=== PATIENT | male | born 1960 | race Caucasian/White ===

== ENCOUNTER → 2016-12-18 | Outpatient (CLI) | payer MEDICARE ==
[2016-12-18 16:16] LABS: ABSOLUTE EOSINOPHILS # (AUTO) 0.1 10^3/uL (0.0-0.6); ABSOLUTE LYMPHOCYTES (AUTO) 1.5 10^3/uL (0.5-4.7); ABSOLUTE MONOCYTES (AUTO) 0.2 10^3/uL (0.1-1.4); ABSOLUTE NEUT (AUTO) 2.1 10^3/uL (1.7-8.2); BASOPHILS % (AUTO) 0.8 % (0-2); EOSINOPHILS % (AUTO) 1.3 % (0-6); HEMATOCRIT 37.1 % (37.9-51.0); HEMOGLOBIN 12.5 g/dL (13.5-17.0); HGB HCT DIFFERENCE 0.4; LYMPHOCYTES % (AUTO) 38.8 % (13-45); MEAN CORPUSCULAR HEMOGLOBIN 28.3 pg (27.0-33.4); MEAN CORPUSCULAR HGB CONC 33.7 g/dL (32.0-36.0); MEAN CORPUSCULAR VOLUME 84 fl (80-97); MONOCYTES % (AUTO) 5.7 % (3-13); RED BLOOD COUNT 4.42 10^6/uL (4.35-5.55); RED CELL DISTRIBUTION WIDTH 15.2 % (11.5-14.0); SEGMENTED NEUTROPHILS % (AUTO) 53.4 % (42-78); WHITE BLOOD COUNT 3.9 10^3/uL (4.0-10.5)
[2016-12-18 16:31] LABS: ALANINE AMINOTRANSFERASE 51 U/L (21-72); ALKALINE PHOSPHATASE 44 U/L (38-126); ANION GAP 12 (5-19); ASPARTATE AMINO TRANSFERASE 54 U/L (17-59); BILIRUBIN,DIRECT 0.3 mg/dL (0.0-0.4); BILIRUBIN,TOTAL 0.8 mg/dL (0.2-1.3); BLOOD UREA NITROGEN 8 mg/dL (7-20); CALCIUM 8.8 mg/dL (8.4-10.2); CARBON DIOXIDE 25 mmol/L (22-30); CHLORIDE 104 mmol/L (98-107); CREATININE RESULT 0.85 mg/dL (0.52-1.25); GLUCOSE 99 mg/dL (75-110); IRON 85.4 ug/dL (49-181); POTASSIUM 4.3 mmol/L (3.6-5.0); SODIUM 141.2 mmol/L (137-145); TOTAL PROTEIN 7.1 g/dL (6.3-8.2)
== END ==
LOC: OD 15:33
PROVIDERS: ATTEND Specialist
DX: R10.9 Unspecified abdominal pain (principal); D50.9 Iron deficiency anemia, unspecified
CPT/HCPCS: 36415; 80053; 82607; 82728; 83540; 85025

== ENCOUNTER 2017-01-03 10:30 | Day surgery (SDC) | payer MEDICARE ==
[~2017-01-03 10:30] MED LIST: EPINEPHRINE INJ 1 MG/10 ML DISP.SYRIN ONE; FLUMAZENIL INJ 0.5 MG/5 ML VIAL IV ONE; GLYCOPYRROLATE INJ 0.4 MG/2 ML VIAL ONE; MIDAZOLAM 2 MG/2 ML INJ ONE; NALOXONE HCL INJ/PF 0.4 MG/1 ML SDV ONE; ONDANSETRON HCL INJ/PF 4 MG/2 ML SDV ONE
--- NOTE | 2017-01-03 10:51 | HISTORY AND PHYSICAL E ---
History and Physical NAME: YAAKOV ZHANG : 1960 AGE: 56Y ADMITTED: 01/03/2017 ROOM: CHIEF COMPLAINT: Dysphagia with vomiting. HISTORY OF PRESENT ILLNESS: New patient, 56, just moved from [place]. He does have history of achalasia, underwent POEM in [place] for achalasia with good results, now he has reflux and dysphagia. PAST MEDICAL HISTORY: 1. History of candidiasis. 2. History of H pylori. 3. History of hepatitis C. 4. And C difficile. PAST SURGICAL HISTORY: The patient did have the followin. Testicle surgery. 2. Back fusion. 3. Spinal stimulator. 4. He does have history of POEM for achalasia. 5. Upper endoscopy October of this year. 6. Colonoscopy October of this year in [place]. MEDICATIONS: 1. Oxycodone. 2. Lyrica. 3. Lexapro. 4. Vitamin D. 5. Diazepam. 6. Magnesium. 7. The patient takes prostate treatment. 8. Aciphex. 9. Nebulizer. 10. Probiotics. PHYSICAL EXAMINATION: VITAL SIGNS: Age 56, blood pressure 90/60, pulse 80, respirations 18, temperature is 98. HEAD, EYES, EARS, NOSE, THROAT: Normal. ABDOMEN: Soft. NEUROLOGIC: Negative. CONCLUSION: 1. Achalasia. 2. History of POEM endoscopic treatment for achalasia. 3. History of dysphagia. 4. Reflux. PLAN: Upper endoscopy. Consider dilatation if there is definite stricture. DICTATING PHYSICIAN: ASHISH PEACOCK M.D. [id number] Y#: [id number] ID: [id number] JOB#: [id number] ACCT: [id number] cc:ASHISH PEACOCK M.D. >
[2017-01-03] MEDS: MIDAZOLAM 2 MG/2 ML INJ ONE ×3 (11:11→11:17)
[2017-01-03] MEDS: FENTANYL CITRATE INJ/PF 100 MCG/2 ML AMPUL ONE ×2 (11:13→11:19)
[2017-01-03 12:40] VITALS: BP 105/67
[2017-01-03 12:40] LABS: ABSOLUTE LYMPHOCYTES (AUTO) 1.2 10^3/uL (0.5-4.7); ABSOLUTE MONOCYTES (AUTO) 0.4 10^3/uL (0.1-1.4); ABSOLUTE NEUT (AUTO) 2.6 10^3/uL (1.7-8.2); BASOPHILS % (AUTO) 0.9 % (0-2); EOSINOPHILS % (AUTO) 0.9 % (0-6); HEMATOCRIT 38.4 % (37.9-51.0); HEMOGLOBIN 13.1 g/dL (13.5-17.0); HGB HCT DIFFERENCE 0.9; LYMPHOCYTES % (AUTO) 29.1 % (13-45); MEAN CORPUSCULAR HEMOGLOBIN 28.7 pg (27.0-33.4); MEAN CORPUSCULAR HGB CONC 34.2 g/dL (32.0-36.0); MEAN CORPUSCULAR VOLUME 84 fl (80-97); MONOCYTES % (AUTO) 9.5 % (3-13); RED BLOOD COUNT 4.57 10^6/uL (4.35-5.55); RED CELL DISTRIBUTION WIDTH 16.5 % (11.5-14.0); SEGMENTED NEUTROPHILS % (AUTO) 59.6 % (42-78); WHITE BLOOD COUNT 4.3 10^3/uL (4.0-10.5)
[2017-01-03 12:55] LABS: ALANINE AMINOTRANSFERASE 68 U/L (21-72); ALBUMIN 4.2 g/dL (3.5-5.0); ALKALINE PHOSPHATASE 45 U/L (38-126); AMYLASE 101 U/L (30-110); ANION GAP 13 (5-19); ASPARTATE AMINO TRANSFERASE 68 U/L (17-59); BILIRUBIN,DIRECT 0.3 mg/dL (0.0-0.4); BILIRUBIN,TOTAL 0.5 mg/dL (0.2-1.3); BLOOD UREA NITROGEN 9 mg/dL (7-20); CALCIUM 8.9 mg/dL (8.4-10.2); CARBON DIOXIDE 25 mmol/L (22-30); CHLORIDE 102 mmol/L (98-107); CREATININE RESULT 0.71 mg/dL (0.52-1.25); GLUCOSE 121 mg/dL (75-110); LIPASE 132.2 U/L (23-300); POTASSIUM 4.5 mmol/L (3.6-5.0); SODIUM 139.8 mmol/L (137-145); TOTAL PROTEIN 7.4 g/dL (6.3-8.2)
[2017-01-03 13:22] LABS: CARCINOEMBRYONIC ANTIGEN 1.3 ng/mL (<3.0)
[2017-01-03 13:28] LABS: C-REACTIVE PROTEIN < 5.0 mg/L (<10.0)
--- NOTE | 2017-01-03 19:44 | DISCHARGE SUMMARY E ---
Discharge Summary NAME: YAAKOV ZHANG : 1960 AGE: 56Y ADMITTED: 01/03/2017 DISCHARGED: 01/03/2017 PROCEDURE: Esophagogastroduodenoscopy. FINAL DIAGNOSES: 1. Dysphagia secondary to achalasia. 2. Hiatus hernia. 3. Mild narrowing in the distal esophagus, no narrow enough to consider dilatation at this time. 4. Patient does have history of chronic obstructive pulmonary disease, emphysema, pneumonia, arthritis, hepatitis C, reflux, spinal cord injury, and dysphagia. VITAL SIGNS: Blood pressure 120/70, pulse 70, afebrile. His abdomen is soft. Upper endoscopy shows no obstruction, no bleeding. A 3 cm hiatus hernia with mild distal esophageal narrowing and mild gastritis. DISCHARGE PLAN: 1. Continue soft diet. 2. Multiple feeding. 3. Consider abdominal CT to rule out any small bowel narrowing or cause for the vomiting, lab studies, small bowel series as an outpatient. ALLERGIES: 1. MORPHINE. 2. PENICILLIN. DICTATING PHYSICIAN: ASHISH PEACOCK M.D. [id number] PHY#: [id number] ID: [id number] JOB#: [id number] ACCT: [id number] cc:ASHISH PEACOCK M.D. >
--- NOTE | 2017-01-03 19:54 | OPERATIVE REPORT E ---
Operative Report NAME: YAAKOV ZHANG : 1960 AGE: 56Y DATE OF SURGERY: 01/03/2017 ROOM: PREOPERATIVE DIAGNOSES: 1. Dysphagia. 2. Reflux. 3. History of achalasia treated by POEM in [place]. Patient just moved from [place], continued to complain of dysphagia and reflux. POSTOPERATIVE DIAGNOSES: 1. Hiatus hernia 3 cm in size. 2. Distal esophagus narrowing but not narrow enough to dilate. Mild narrowing which relaxed with passing the scope. 3. Patient did have a clip in his proximal esophagus from the recent POEM surgery for achalasia in [place]. PROCEDURE: EGD. SURGEON: ASHISH PEACOCK M.D. ANESTHESIA: Patient was difficult to sedate. He received 6 mg of Versed and 200 mcg of Fentanyl, and he was basically awake but sedated. TISSUE REMOVED OR ALTERED: None. FINDINGS: No ulcers, no malignancy, mild distal esophageal stricture not narrow enough to dilate, a large hiatus hernia 3 cm, and a clip in the proximal esophagus from recent POEM surgery in [place]. PROCEDURE: After the 6 mg Versed and 200 mcg Fentanyl the patient was sedated and the scope passed under guided vision with no difficulties. Esophagoscopy: Junction at 40 cm, 3-cm hiatus hernia, and the esophagus in the distal part shows mild narrowing, but the scope passed in and out with no difficulties. I do not feel the patient needs dilatation at this time. Gastroscopy: No ulcers, mild gastritis. Duodenoscopy: Mild duodenitis. CONCLUSIONS: Esophagitis, gastritis, duodenitis, status post POEM treatment for achalasia in [facility] [place] [facility]. No evidence of ulcers, no bleeding, no obstruction. PLAN: 1. Continue present management. 2. Soft diet. 3. Patient is to see us in the office in the next few days. DICTATING PHYSICIAN: ASHISH PEACOCK M.D. 1209M 1148 Y#: [id number] ID: [id number] JOB#: [id number] ACCT: [id number] cc:ASHISH PEACOCK M.D. >
== END 2017-01-03 12:38 | disposition home or self-care (01) ==
LOC: END 10:30
PROVIDERS: ATTEND Specialist
PROC: 0DJ08ZZ Inspection of Upper Intestinal Tract, Via Natural or Artificial Opening Endoscopic (ICD-10-PCS; principal; 2017-01-03 11:00)
DX: K44.9 Diaphragmatic hernia without obstruction or gangrene (principal); K22.0 Achalasia of cardia; K22.2 Esophageal obstruction; R97.0 Elevated carcinoembryonic antigen [CEA]; N42.9 Disorder of prostate, unspecified; Z79.899 Other long term (current) drug therapy; Z88.0 Allergy status to penicillin; Z79.51 Long term (current) use of inhaled steroids; Z86.19 Personal history of other infectious and parasitic diseases
CPT/HCPCS: 43235; 36415; 82150; 82378; 83690; 85025; 86140; 80053; J2250; J3010; J2405; J0171; J2310; J3490

== ENCOUNTER 2017-11-02 11:27 | Emergency (ER) | payer OTHER, MEDICARE ==
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
[2017-11-02 12:44] LABS: ABSOLUTE EOSINOPHILS # (AUTO) 0.1 10^3/uL (0.0-0.6); ABSOLUTE LYMPHOCYTES (AUTO) 1.5 10^3/uL (0.5-4.7); ABSOLUTE MONOCYTES (AUTO) 0.3 10^3/uL (0.1-1.4); ABSOLUTE NEUT (AUTO) 2.8 10^3/uL (1.7-8.2); EOSINOPHILS % (AUTO) 1.4 % (0-6); HEMATOCRIT 40.4 % (37.9-51.0); HEMOGLOBIN 13.7 g/dL (13.5-17.0); LYMPHOCYTES % (AUTO) 31.1 % (13-45); MEAN CORPUSCULAR HEMOGLOBIN 29.8 pg (27.0-33.4); MEAN CORPUSCULAR HGB CONC 33.8 g/dL (32.0-36.0); MEAN CORPUSCULAR VOLUME 88 fl (80-97); MONOCYTES % (AUTO) 6.4 % (3-13); RED BLOOD COUNT 4.59 10^6/uL (4.35-5.55); RED CELL DISTRIBUTION WIDTH 13.9 % (11.5-14.0); SEGMENTED NEUTROPHILS % (AUTO) 60.1 % (42-78); TOTAL CELLS COUNTED % (AUTO) 100 %; WHITE BLOOD COUNT 4.7 10^3/uL (4.0-10.5)
[2017-11-02 12:56] LABS: ANION GAP 9 (5-19); BLOOD UREA NITROGEN 12 mg/dL (7-20); CALCIUM 9.7 mg/dL (8.4-10.2); CARBON DIOXIDE 26 mmol/L (22-30); CHLORIDE 106 mmol/L (98-107); GLUCOSE 74 mg/dL (75-110); POTASSIUM 4.4 mmol/L (3.6-5.0); SODIUM 140.6 mmol/L (137-145)
[2017-11-02 13:00] LABS: PLATELET COUNT 80 10^3/uL (150-450)
[2017-11-02 14:08] VITALS: BP 115/78
== END 2017-11-02 14:06 | disposition home or self-care (01) ==
LOC: ER 11:27
DX: S20.212A Contusion of left front wall of thorax, initial encounter (principal); S09.90XA Unspecified injury of head, initial encounter; M54.2 Cervicalgia; V49.40XA Driver injured in collision with unspecified motor vehicles in traffic accident, initial encounter; J44.9 Chronic obstructive pulmonary disease, unspecified; Z88.5 Allergy status to narcotic agent
CPT/HCPCS: 36415; 70450; 71045; 72125; 72170; 80048; 82962; 85025; 99285

== ENCOUNTER 2017-11-05 10:56 | Emergency (ER) | payer OTHER, MEDICARE ==
[2017-11-05] MEDS ORDERED: CARISOPRODOL 350 MG TABLET PO ONE (13:15)
[2017-11-05] MEDS ORDERED: OXYCODONE-ACETAMINOPHEN 5-325 MG TABLET PO ONE (13:17)
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
[2017-11-05 14:22] VITALS: BP 125/81
== END 2017-11-05 14:44 | disposition home or self-care (01) ==
LOC: ER 10:56
DX: S06.0X9A Concussion with loss of consciousness of unspecified duration, initial encounter (principal); S16.1XXA Strain of muscle, fascia and tendon at neck level, initial encounter; R51 Headache; M79.604 Pain in right leg; M79.605 Pain in left leg; V49.9XXA Car occupant (driver) (passenger) injured in unspecified traffic accident, initial encounter; Z98.1 Arthrodesis status; Z79.899 Other long term (current) drug therapy; Z88.5 Allergy status to narcotic agent; Z88.0 Allergy status to penicillin
CPT/HCPCS: 99283; J3490

== ENCOUNTER 2017-12-24 08:10 | Emergency (ER) | payer OTHER, MEDICARE ==
[2017-12-24] MEDS ORDERED: DIPHENHYDRAMINE HCL 50 MG/ML VIAL IV ONE (09:19)
[2017-12-24] MEDS ORDERED: KETOROLAC TROMETHAMINE INJ/PF 30 MG/1 ML SDV IV ONE (09:19)
[2017-12-24] MEDS ORDERED: METOCLOPRAMIDE HCL INJ/PF 10 MG/2 ML SDV IV ONE (09:19)
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
[2017-12-24 10:03] LABS: ABSOLUTE EOSINOPHILS # (AUTO) 0.1 10^3/uL (0.0-0.6); ABSOLUTE LYMPHOCYTES (AUTO) 1.2 10^3/uL (0.5-4.7); ABSOLUTE MONOCYTES (AUTO) 0.4 10^3/uL (0.1-1.4); ABSOLUTE NEUT (AUTO) 2.7 10^3/uL (1.7-8.2); BASOPHILS % (AUTO) 0.9 % (0-2); EOSINOPHILS % (AUTO) 1.7 % (0-6); HEMATOCRIT 41.9 % (37.9-51.0); HEMOGLOBIN 14.3 g/dL (13.5-17.0); LYMPHOCYTES % (AUTO) 27.2 % (13-45); MEAN CORPUSCULAR HEMOGLOBIN 30.2 pg (27.0-33.4); MEAN CORPUSCULAR HGB CONC 34.2 g/dL (32.0-36.0); MEAN CORPUSCULAR VOLUME 88 fl (80-97); MONOCYTES % (AUTO) 8.7 % (3-13); RED BLOOD COUNT 4.75 10^6/uL (4.35-5.55); RED CELL DISTRIBUTION WIDTH 14.3 % (11.5-14.0); SEGMENTED NEUTROPHILS % (AUTO) 61.5 % (42-78); TOTAL CELLS COUNTED % (AUTO) 100 %; WHITE BLOOD COUNT 4.4 10^3/uL (4.0-10.5)
--- NOTE | 2017-12-24 10:22 | RADIOLOGY REPORT (SQ) ---
EXAM DESCRIPTION: CHEST SINGLE VIEW COMPLETED DATE/TIME: 12/24/2017 9:58 am REASON FOR STUDY: dizziness COMPARISON: AP chest 11/02/2017 EXAM PARAMETERS: NUMBER OF VIEWS: One view. TECHNIQUE: Single frontal radiographic view of the chest acquired. RADIATION DOSE: NA LIMITATIONS: None. FINDINGS: LUNGS AND PLEURA: No opacities, masses or pneumothorax. No pleural effusion. MEDIASTINUM AND HILAR STRUCTURES: No masses. Contour normal. HEART AND VASCULAR STRUCTURES: Heart normal in size. Normal vasculature. BONES: No acute findings. HARDWARE: Neurostimulator electrodes are present over the lower thoracic spine OTHER: No other significant finding. IMPRESSION: NO ACUTE RADIOGRAPHIC FINDING IN THE CHEST. TECHNICAL DOCUMENTATION: JOB ID: [id number] [employer]- All Rights Reserved Reading location - IP/workstation name: [email or web address]
[2017-12-24 10:27] LABS: APPEARANCE,URINE CLEAR; BILIRUBIN,URINE NEGATIVE (NEGATIVE); COLOR,URINE YELLOW; GLUCOSE, URINE NEGATIVE (NEGATIVE); KETONES,URINE NEGATIVE (NEGATIVE); LEUKOCYTE ESTERASE,URINE NEGATIVE (NEGATIVE); NITRITE,URINE NEGATIVE (NEGATIVE); PROTEIN,URINE NEGATIVE (NEGATIVE); URINE SPECIFIC GRAVITY 1.009; UROBILINOGEN,URINE NEGATIVE mg/dL (<2.0)
[2017-12-24 10:31] LABS: ALANINE AMINOTRANSFERASE 81 U/L (21-72); ALBUMIN 4.3 g/dL (3.5-5.0); ALKALINE PHOSPHATASE 47 U/L (38-126); ANION GAP 12 (5-19); ASPARTATE AMINO TRANSFERASE 75 U/L (17-59); BILIRUBIN,DIRECT 0.3 mg/dL (0.0-0.4); BILIRUBIN,TOTAL 0.3 mg/dL (0.2-1.3); BLOOD UREA NITROGEN 15 mg/dL (7-20); CALCIUM 9.7 mg/dL (8.4-10.2); CARBON DIOXIDE 28 mmol/L (22-30); CHLORIDE 105 mmol/L (98-107); GLUCOSE 83 mg/dL (75-110); POTASSIUM 4.8 mmol/L (3.6-5.0); SODIUM 144.9 mmol/L (137-145); TOTAL PROTEIN 7.5 g/dL (6.3-8.2)
[2017-12-24 10:36] LABS: PLATELET COUNT 89 10^3/uL (150-450)
[2017-12-24 10:48] LABS: URINE AMPHETAMINES SCREEN NEGATIVE; URINE BARBITURATES SCREEN NEGATIVE; URINE BENZODIAZEPINES SCREEN NEGATIVE; URINE COCAINE SCREEN NEGATIVE; URINE MARIJUANA (THC) SCREEN NEGATIVE; URINE METHADONE SCREEN NEGATIVE; URINE PHENCYCLIDINE SCREEN NEGATIVE
[2017-12-24] MEDS ORDERED: FAMOTIDINE INJ/PF 20 MG/2 ML SDV IV ONE (11:03)
[2017-12-24] MEDS ORDERED: DOCUSATE SODIUM 100 MG CAPSULE BTH_EAR ONE (11:03)
--- NOTE | 2017-12-24 11:26 | RADIOLOGY REPORT (SQ) ---
EXAM DESCRIPTION: CT HEAD WITHOUT COMPLETED DATE/TIME: 12/24/2017 11:14 am REASON FOR STUDY: dizziness, tinnitus COMPARISON: CT brain 11/02/2017 TECHNIQUE: Axial images acquired through the brain without intravenous contrast. Images reviewed wi th bone, brain and subdural windows. Additional sagittal and coronal reconstructions were generated. Images stored on PACS. All CT scanners at this facility use dose modulation, iterative reconstruction, and/or weight based d osing when appropriate to reduce radiation dose to as low as reasonably achievable (ALARA). [facility]: Dose Right [facility]: CareDose [facility]: Dose Right [facility]: Teradose 4D [facility]: [employer] RADIATION DOSE: CT Rad equipment meets quality standard of care and radiation dose reduction techniq ues were employed. CTDIvol: 53.2 mGy. DLP: 1017 mGy-cm. mGy. LIMITATIONS: None. FINDINGS: VENTRICLES: Normal size and contour. CEREBRUM: No masses. No hemorrhage. No midline shift. No evidence for acute infarction. Normal gra y/white matter differentiation. No areas of low density in the white matter. CEREBELLUM: No masses. No hemorrhage. No alteration of density. No evidence for acute infarction. EXTRAAXIAL SPACES: No fluid collections. No masses. ORBITS AND GLOBE: No intra- or extraconal masses. Normal contour of globe without masses. CALVARIUM: No fracture. PARANASAL SINUSES: No fluid or mucosal thickening. SOFT TISSUES: No mass or hematoma. OTHER: No other significant finding. IMPRESSION: NORMAL BRAIN CT WITHOUT CONTRAST. EVIDENCE OF ACUTE STROKE: NO. COMMENT: Quality ID # [id number]: Final reports with documentation of one or more dose reduction techniques (e.g., Automated exposure control, adjustment of the mA and/or kV according to patient size, use of iterative reconstruction technique) TECHNICAL DOCUMENTATION: JOB ID: [id number] [employer]- All Rights Reserved Reading location - IP/workstation name: [email or web address]
[2017-12-24 12:36] VITALS: BP 126/78
--- NOTE | 2017-12-24 13:34 | EKG REPORT ---
SEVERITY:- ABNORMAL ECG - ECTOPIC ATRIAL RHYTHM SHORT IA INTERVAL, ACCELERATED AV CONDUCTION LEFT ANTERIOR FASCICULAR BLOCK LOW VOLTAGE IN FRONTAL LEADS : Confirmed by: Miguel A Gerber MD 24-Dec-2017 13:34:07
--- NOTE | 2017-12-24 13:35 | EKG REPORT ---
SEVERITY:- ABNORMAL ECG - ACCELERATED JUNCTIONAL ESCAPE RHYTHM LOW VOLTAGE IN FRONTAL LEADS : Confirmed by: Miguel A Gerber MD 24-Dec-2017 13:34:19
== END 2017-12-24 12:41 | disposition home or self-care (01) ==
LOC: ER 08:10
DX: R42 Dizziness and giddiness (principal); H93.13 Tinnitus, bilateral; H61.23 Impacted cerumen, bilateral; R51 Headache; Z88.0 Allergy status to penicillin; Z88.6 Allergy status to analgesic agent; Z98.1 Arthrodesis status
CPT/HCPCS: 93005; 99285; 96374; 96375; 36415; 85025; 80053; 81001; 84484; 80307; 71045; 70450; 93010; J1200; J1885; J2765; S0028

== ENCOUNTER 2019-07-30 18:57 | Emergency (ER) | payer MEDICARE ==
[2019-07-30] MEDS ORDERED: KETOROLAC TROMETHAMINE 60 MG/2 ML SDV IM ONE (19:22)
[2019-07-30] MEDS ORDERED: METHOCARBAMOL 750 MG TABLET PO ONE (19:22)
[2019-07-30] MEDS ORDERED: LIDOCAINE 5% (700 MG) TRANSDERMAL ADH..PATCH TP ONE (19:22)
--- NOTE | 2019-07-30 19:30 | ER Document Report ---
ED Neck/Back Problem - General TRAVEL OUTSIDE OF THE [place] IN LAST 30 DAYS: No - General Chief Complaint: Neck Injury Stated Complaint: NECK INJURY Time Seen by Provider: 07/30/19 19:17 Primary Care Provider: ABRAHAM WITT MD [NO LOCAL MD] - Follow up as needed Notes: Patient is a 59-year-old male presents to the emergency department with acute on chronic right neck pain. Patient voices he has degenerative disc disease and chronic pain in his neck. States he was told that he does need to have surgery for bulging disc. States he has tried to put off the surgery with over-the- counter pain medications. States 2 days ago he accidentally slipped in the shower. States he landed on the right side of his neck. Patient voices he has cervical spine tenderness centrally and also right paraspinal. Patient voices intermittent, "tingling" in his right upper extremity. Patient's denying any urinary retention, loss of bowel or bladder. Denies any loss of conscious or vomiting. Patient does have full range of motion of the neck when he is in triage, looking around a triage nurse and myself. Upon examination does have pain midline cervical, see collar placed. (USHA WHYTE) - Related Data Allergies/Adverse Reactions: morphine Allergy (Verified 07/30/19 19:16) Penicillins Allergy (Verified 07/30/19 19:16) Past Medical History - General Information source: Patient - Social History Smoking Status: Unknown if Ever Smoked Family History: Reviewed & Not Pertinent Patient has suicidal ideation: No Patient has homicidal ideation: No - Past Medical History Cardiac Medical History: Denies: Hx Coronary Artery Disease, Hx Heart Attack, Hx Hypertension Pulmonary Medical History: Reports: Hx COPD, Hx Pneumonia Denies: Hx Asthma, Hx Bronchitis Neurological Medical History: Denies: Hx Cerebrovascular Accident, Hx Seizures Renal/ Medical History: Denies: Hx Peritoneal Dialysis GI Medical History: Reports: Hx Gastroesophageal Reflux Disease Musculoskeletal Medical History: Reports Hx Arthritis Past Surgical History: Reports: Hx Orthopedic Surgery - L3,4,5,S1 fusion - Immunizations Hx Diphtheria, Pertussis, Tetanus Vaccination: Yes Review of Systems - Review of Systems Constitutional: denies: Fever EENT: No symptoms reported Cardiovascular: No symptoms reported Respiratory: No symptoms reported Gastrointestinal: No symptoms reported Genitourinary: No symptoms reported Male Genitourinary: No symptoms reported Musculoskeletal: See HPI Skin: No symptoms reported Hematologic/Lymphatic: No symptoms reported Neurological/Psychological: See HPI Physical Exam - Vital signs Vitals: Temp Pulse BP Pulse Ox 98.2 F 86 117/77 96 07/30/19 19:03 07/30/19 19:03 07/30/19 19:03 07/30/19 19:03 - Notes Notes: GENERAL: Alert, interacts well. No acute distress. HEAD: Normocephalic, atraumatic. EYES: Pupils equal, round, and reactive to light. Extraocular movements intact. ENT: Oral mucosa moist, tongue midline. Nares patent, no nasal septal hematoma, TM's intact, no hemotympanum noted bilaterally. NECK: Supple. Trachea midline. Cervical spine tenderness noted, c-collar applied. LUNGS: Clear to auscultation bilaterally, no wheezes, rales, or rhonchi. No respiratory distress. HEART: Regular rate and rhythm. No murmur ABDOMEN: Soft, non-tender. Non-distended. Bowel sounds present in all 4 quadrants. EXTREMITIES: Moves all 4 extremities spontaneously. No edema, normal radial and dorsalis pedis pulses bilaterally. No cyanosis. 5 out of 5 strength noted all 4 extremities. BACK: no thoracic, lumbar midline tenderness. No saddle anesthesia, normal distal neurovascular exam. NEUROLOGICAL: Alert and oriented x3. Normal speech. cranial nerves II through XII grossly intact. PSYCH: Normal affect, normal mood. SKIN: Warm, dry, normal turgor. No rashes or lesions noted. (USHA WHYTE) Course - Re-evaluation Re-evalutation: Cervical Spine CT 07/30/19 19:23 IMPRESSION: Subtle lucency at the right side of the ring of C1 may be degenerative or represent coarse trabecula but acute fracture is not excluded on this exam. If there is focal pain, I recommend MRI to assess for acute edema. Possible acute fracture, mildly displaced, of the superior aspect of the posterior medial portion of the right first rib. This is best seen on image 18 series 201. No other fracture. Discussed this case with my attending Dr. Jim who is recommending transferring the patient to a trauma center. Discussed this case with Dr. Gonzalez at [facility] who will accept the patient for an ED to ED trauma transfer. Patient continues in c-collar. Pain medication ordered at this time as patient states Toradol "only helped a little." Discussed with patient and nursing staff he should be fully immobilized for transport. Patient continues with 5 out of 5 strength in all 4 extremities. (USHA WHYTE) 07/30/19 22:56 Transport is at bedside. Patient placed in appropriate fitting aspen cervical collar while maintaining cervical spine immobilization. Patient is alert, oriented, answering all questions appropriately. He is being medicated for pain. He did ask for a dose of protonix as he has GERD and typically takes this every evening. IV dose ordered. He is stable for transport at this time. (MARIA EUGENIA BERTRAND) - Vital Signs Vital signs: Temp Pulse Resp BP Pulse Ox 98.1 F 72 12 121/75 95 07/30/19 22:43 07/30/19 22:43 07/30/19 22:43 07/30/19 22:43 07/30/19 22:43 Discharge - Discharge Clinical Impression: C1 cervical fracture Qualifiers: Encounter type: initial encounter Fracture type: closed Fracture morphology: unspecified fracture morphology Fracture alignment: nondisplaced Qualified Code(s): S12.001A - Unspecified nondisplaced fracture of first cervical vertebra, initial encounter for closed fracture Condition: Stable Disposition: [facility] Referrals: ABRAHAM WITT MD [NO LOCAL MD] - Follow up as needed
--- NOTE | 2019-07-30 20:27 | RADIOLOGY REPORT (SQ) ---
EXAM DESCRIPTION: CT CERVICAL SPINE WITHOUT IV CONTRAST COMPLETED DATE/TME: 07/30/2019 19:23 CLINICAL HISTORY: 59 years, Male, fall/pain COMPARISON: None. EXAM DESCRIPTION: CLINICAL HISTORY: fall/pain COMPARISON: None Available TECHNIQUE: Contiguous axial images of the cervical spine were obtained without the administration of intravenous contrast followed by reconstruction images. This exam was performed according to our departmental dose-optimization program, which includes automated exposure control, adjustment of the mA and/or kV according to patient size and/or use of iterative reconstruction technique. FINDINGS: Subtle lucency at the right side of the ring of C1 may represent coarse trabecula but acute fracture is not excluded on this exam.If there is focal pain at this location recommend MRI. There are degenerative changes. There is discontinuity of the medial aspect of the posterior right first rib that is nonspecific and could be chronic. However acute fracture of this portion of the right first rib is not excluded. There is no other acute fracture or subluxation. Prevertebral soft tissues are within normal limits. IMPRESSION: Subtle lucency at the right side of the ring of C1 may be degenerative or represent coarse trabecula but acute fracture is not excluded on this exam. If there is focal pain, I recommend MRI to assess for acute edema. Possible acute fracture, mildly displaced, of the superior aspect of the posterior medial portion of the right first rib. This is best seen on image 18 series 201. No other fracture.
[2019-07-30] MEDS ORDERED: HYDROCODONE/ACETAMINOPHEN 7.5-325 MG TABLET PO ONE (22:06)
[2019-07-30] MEDS ORDERED: PANTOPRAZOLE SODIUM 40 MG VIAL IV ONE (22:40)
[2019-07-30 22:44] VITALS: BP 121/75
== END 2019-07-30 23:03 | disposition short-term general hospital (02) ==
LOC: ER 18:57
DX: S12.001A Unspecified nondisplaced fracture of first cervical vertebra, initial encounter for closed fracture (principal); M54.2 Cervicalgia; R20.0 Anesthesia of skin; W18.2XXA Fall in (into) shower or empty bathtub, initial encounter; J44.9 Chronic obstructive pulmonary disease, unspecified
CPT/HCPCS: 99284; 96372; 72125; L0172; L0120; J1885; A9270 ×3; C9113; J3490